=== PATIENT | male | born 1970 | race Caucasian/White ===

== ENCOUNTER 2023-01-22 19:37 | Emergency (ER) | payer OTHER ==
[~2023-01-22] VITALS: Ht 182.9 cm; Wt 108.9 kg
[~2023-01-22 19:37] MED LIST: CRUTCH4 USE; HYDACE5 PO
[2023-01-22 20:01] VITALS: BP 157/88
[2023-01-22] MEDS ORDERED: FLUO10 PO (20:08)
[2023-01-22] MEDS ORDERED: CEPH500 PO (20:09)
== END 2023-01-22 20:10 | disposition home or self-care (01) ==
LOC: ER 19:37
DX: L03.116 Cellulitis of left lower limb (principal); L02.416 Cutaneous abscess of left lower limb; Z79.899 Other long term (current) drug therapy
CPT/HCPCS: 99282; A9270